=== PATIENT | female | born 1985 | race Caucasian/White ===

== ENCOUNTER 2017-05-09 19:31 | Emergency (ER) | payer OTHER ==
[2017-05-09] MEDS ORDERED: IBUPROFEN 800 MG TABLET PO ONE (19:46)
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
[2017-05-09 22:10] VITALS: BP 123/87
== END 2017-05-09 22:11 | disposition home or self-care (01) ==
LOC: ER 19:31
DX: S89.91XA Unspecified injury of right lower leg, initial encounter (principal); W50.0XXA Accidental hit or strike by another person, initial encounter; Y93.89 Activity, other specified; Y99.0 Civilian activity done for income or pay; Z98.890 Other specified postprocedural states
CPT/HCPCS: 99283; 73562; L1830